=== PATIENT | female | born 1960 | race Caucasian/White ===

== ENCOUNTER 2025-03-09 08:36 | Emergency (ER) | payer OTHER ==
[2025-03-09] MEDS ORDERED: FAMOTIDINE 20 MG/2 ML VIAL IV ONE (09:20)
[2025-03-09 09:33] LABS: Absolute Monocytes 0.3 K/uL (0.1-1.3); Absolute Neutrophil 5.6 K/uL (1.8-8.0); Basophils % 0.3 % (0-1.3); Eosinophils % 0.6 % (0-4.4); Hematocrit 40.6 % (36.0-45.0); Hemoglobin 14.1 g/dL (12.0-15.0); Lymphocytes % 14.2 % (15.3-44.8); MCH 33.3 pg (27.0-35.0); MCHC 34.7 g/dL (32.0-36.0); MCV 95.9 fL (80-100); MPV 9.4 fL (7.6-11.3); Monocytes % 4.6 % (3.3-12.3); Neutrophils % 80.3 % (41.7-73.7); Platelets 225 thou/uL (152-406); RBC Red Blood Cell Count 4.23 M/uL (3.86-4.86); Red Cell Distribution Width 13.8 % (12.1-15.2)
--- NOTE | 2025-03-09 09:40 | RAD REPORT ---
EXAM: Chest Single View HISTORY: 64 years Female CHEST PAIN COMPARISON: None. FINDINGS: LUNGS/PLEURA: The lungs are clear. No pleural effusions or pneumothorax. No pulmonary edema. CARDIAC/MEDIASTINUM: The cardiac silhouette is within normal limits. UPPER ABDOMEN: No significant abnormality. BONES: No acute abnormality. LINES/TUBES/OTHER: N/A IMPRESSION: No evidence of acute cardiopulmonary disease.
[2025-03-09] MEDS ORDERED: KETOROLAC 30 MG/ML INJ ONE (09:42)
[2025-03-09 09:51] LABS: Albumin 3.7 g/dL (3.4-5.0); Albumin/Globulin Ratio 1.1 (1.1-1.8); Anion Gap 14.2 mEq/L (5.0-15.0); Bilirubin Direct 0.2 mg/dL (0-0.2); Bilirubin Indirect, Calculated 0.3 mg/dL (0.2-0.8); Bilirubin Total 0.5 mg/dL (0.2-1.0); Globulin 3.4 g/dL (2.3-3.5); Potassium 4.2 mEq/L (3.5-5.1); Protein, Total 7.1 g/dL (6.4-8.2); Troponin High Sensitivity 4.6 pg/mL (<58.9)
[2025-03-09] MEDS ORDERED: FENTANYL CITR 100 MCG/2 ML ONE (10:25)
--- NOTE | 2025-03-09 11:36 | ER ---
Nurse's Notes [facility] Name: Hailey Tran Age: 64 yrs Sex: Female : 1960 Arrival Date: 03/09/2025 Time: 08:36 Bed 12 Private MD: Diagnosis: Pain in left shoulder;Muscle spasm Presentation: 03/09 08:46 Chief complaint: Patient states: L sided back pain for 1 week. Pain was so severe today ll1 with nausea that she came to get checked. No fever. Pain to L upper back now with dizziness. Coronavirus screen: Client denies travel out of the [place] in the last 14 days. At this time, the client does not indicate any symptoms associated with coronavirus-19. Ebola Screen: Patient denies travel to an Ebola-affected area in the 21 days before illness onset. Initial Sepsis Screen: Does the patient meet any 2 criteria? No. Patient's initial sepsis screen is negative. Does the patient have a suspected source of infection? No. Patient's initial sepsis screen is negative. Risk Assessment: Do you want to hurt yourself or someone else? Patient reports no desire to harm self or others. Onset of symptoms was March 04, 2025. 08:46 Method Of Arrival: Ambulatory ll1 08:46 Acuity: LELO 3 ll1 Triage Assessment: 08:46 General: Appears distressed, uncomfortable, Behavior is calm, cooperative, appropriate ll1 for age, Reports. Pain: Complains of pain in back Pain currently is 10 out of 10 on a pain scale. Quality of pain is described as aching, throbbing. GI: Reports nausea. Musculoskeletal: Reports pain in back. Historical: - Allergies: 08:45 No Known Allergies; ll1 - PMHx: 08:45 Hypertensive disorder; ll1 - PSHx: 08:45 section; gastric sleeve; ll1 - Immunization history:: Adult Immunizations up to date. - Infectious Disease History:: Denies. - Social history:: Smoking status: Patient denies any tobacco usage or history of. Screenin:28 [facility] ED Fall Risk Assessment (Adult) History of falling in the last 3 months, ll1 including since admission No falls in past 3 months (0 pts) Confusion or Disorientation No (0 pts) Intoxicated or Sedated No (0 pts) Impaired Gait No (0 pts) Mobility Assist Device Used No (0 pt) Altered Elimination No (0 pt) Score/Fall Risk Level 0 - 2 = Low Risk Maintained a safe environment, Hourly rounding (assess needs \T\ fall precautionary measures) done. Abuse screen: Denies threats or abuse. Nutritional screening: No deficits noted. Tuberculosis screening: No symptoms or risk factors identified. Assessment: 09:04 Reassessment: No changes from previously documented assessment. Patient and/or family ll1 updated on plan of care and expected duration. Pain level reassessed. Patient is alert, oriented x 3, equal unlabored respirations, skin warm/dry/pink. 09:28 Reassessment: No changes from previously documented assessment. Patient and/or family ll1 updated on plan of care and expected duration. Pain level reassessed. Patient is alert, oriented x 3, equal unlabored respirations, skin warm/dry/pink. 10:31 Reassessment: No changes from previously documented assessment. Patient and/or family ll1 updated on plan of care and expected duration. Pain level reassessed. Patient is alert, oriented x 3, equal unlabored respirations, skin warm/dry/pink. 12:07 Reassessment: No changes from previously documented assessment. Patient and/or family ll1 updated on plan of care and expected duration. Pain level reassessed. Patient is alert, oriented x 3, equal unlabored respirations, skin warm/dry/pink. Vital Signs: 08:46 BP 128 / 83; Pulse 76; Resp 17; Temp 97.3; Pulse Ox 100% ; Weight 68.04 kg; Height 5 ll1 ft. 3 in. ; Pain 10/10; 09:41 BP 124 / 76; em1 10:30 BP 108 / 68; Pulse 70; Resp 17; Pulse Ox 100% on R/A; Pain 9/10; ll1 10:55 BP 112 / 74; Pulse 80; Resp 15; Pulse Ox 100% ; Pain 6/10; ll1 12:07 BP 106 / 73; Pulse 78; Resp 16; Pulse Ox 100% ; ll1 08:46 Body Mass Index 26.57 (68.04 kg, 160.02 cm) ll1 08:46 Pain Scale: Adult ll1 10:30 Pain Scale: Adult ll1 10:55 Pain Scale: Adult ll1 ED Course: 08:39 Patient arrived in ED. al6 08:48 Triage completed. ll1 08:48 Arm band placed on. ll1 08:54 Elin Ramirez FNP is [facility] 7 08:54 Brenda Mark MD is Attending Physician. jh7 09:01 Patient placed in an exam room, on a stretcher. ll1 09:04 Provided Education on: ER procedures and process. Warm blanket given. Pillow given. ll1 09:11 EKG done, by ED staff, reviewed by Elin JOHNSON. ll1 09:16 Iftikhar Julian, RN is Primary Nurse. ll1 09:22 Inserted saline lock: 22 gauge in right antecubital area, using aseptic technique. nh2 Blood collected. Flushed with 10 mL NS. 09:23 Basic Metabolic Panel Sent. nh2 09:23 CBC with Diff Sent. nh2 09:23 LFT's Sent. nh2 09:23 NT PRO-BNP Sent. nh2 09:23 Troponin HS Sent. nh2 09:28 Lipase Sent. nh2 09:29 Patient has correct armband on for positive identification. Bed in low position. Call ll1 light in reach. 09:30 XRAY Chest (1 view) In Process Unspecified. EDMS 10:58 Troponin High Sensitivity: repeat at 1045 Sent. ll1 12:07 No provider procedures requiring assistance completed. IV discontinued, intact, ll1 bleeding controlled, No redness/swelling at site. Pressure dressing applied. Administered Medications: 09:28 Drug: Famotidine IVP 20 mg IVP once; dilute with 10 mL 0.9% NaCl; give over 2 minutes ll1 Route: IVP; Site: right antecubital; 09:46 Follow up: Response: No adverse reaction ll1 09:46 Drug: Ketorolac IVP 30 mg IVP once Route: IVP; Site: right antecubital; 1 10:32 Follow up: Response: No adverse reaction; Pain is decreased; RASS: Alert and Calm (0) 1 10:32 Drug: fentaNYL (PF) IVP 25 mcg IVP once {Note: pain 9/10 RASS 0.} Route: IVP; Site: ll1 right antecubital; 12:08 Follow up: Response: No adverse reaction; Pain is decreased; RASS: Alert and Calm (0) [facility] Medication: 09:29 VIS not applicable for this client. ll1 Outcome: 11:35 Discharge ordered by MD. bermudez 12:07 Discharged to home ambulatory, ll1 12:07 Condition: stable 12:07 Discharge instructions given to patient, family, Instructed on discharge instructions, follow up and referral plans. no drinking with medication, no driving heavy equipment, medication usage, Demonstrated understanding of instructions, follow-up care, medications, Prescriptions given X 2, 12:08 Patient left the ED. ll1 Signatures: Dispatcher [employer] Jamel Avila 1 Iftikhar Julian, RN RN ll1 Elin Ramirez, MEMBERSHIP SALES REPRESENTATIVE MEMBERSHIP SALES REPRESENTATIVE 7 Bhupinder Tyson, Vibha Valle6 Corrections: (The following items were deleted from the chart) 09:17 08:46 Pain: Complains of pain in back Pain currently is 10 out of 10 on a pain scale. ll1 Quality of pain is described as aching, throbbing, ll1
--- NOTE | 2025-03-09 11:36 | EDPHYS ---
Physician Documentation [facility] Name: Hailey Tran Age: 64 yrs Sex: Female : 1960 Arrival Date: 03/09/2025 Time: 08:36 Bed 12 Private MD: ED Physician Brenda Mark HPI: 03/09 08:58 This 64 yrs old Female presents to ER via Ambulatory with complaints of Left shoulder jh7 blade and lower back pain. 09:17 64-year-old female presents to the ER for left lower back pain x 1 week and left jh7 shoulder blade pain starting this morning. She reports that the lower back pain is exacerbated by certain movements and lifting. She reports that this morning she woke up with nonreproducible left shoulder blade pain. She reports that she initially thought it was gas due to excessive burping, but reports that Gas-X has not helped relieve symptoms. The patient has a past medical history of hypertension and denies history of smoking. Denies chest pain, abdominal pain, vomiting, dizziness, or any other symptoms at this time.. Historical: - Allergies: 08:45 No Known Allergies; ll1 - PMHx: 08:45 Hypertensive disorder; ll1 - PSHx: 08:45 section; gastric sleeve; ll1 - Immunization history:: Adult Immunizations up to date. - Infectious Disease History:: Denies. - Social history:: Smoking status: Patient denies any tobacco usage or history of. ROS: 09:17 Constitutional: Per [place] [id number] Exam: 09:09 ECG was reviewed by the Attending Physician. [facility] 09:17 Constitutional: This is a well developed, well nourished patient who is awake, alert, jh7 and in no acute distress. Head/Face: Normocephalic, atraumatic. Chest/axilla: Normal chest wall appearance and motion. Nontender with no deformity. No lesions are appreciated. Cardiovascular: Regular rate and rhythm with a normal S1 and S2. No gallops, murmurs, or rubs. Normal PMI, no JVD. No pulse deficits. Respiratory: Lungs have equal breath sounds bilaterally, clear to auscultation and percussion. No rales, rhonchi or wheezes noted. No increased work of breathing, no retractions or nasal flaring. Abdomen/GI: Soft, non-tender, with normal bowel sounds. No distension or tympany. No guarding or rebound. No evidence of tenderness throughout. Skin: Warm, dry with normal turgor. Normal color with no rashes, no lesions, and no evidence of cellulitis. MS/ Extremity: Pulses equal, no cyanosis. Neurovascular intact. Full, normal range of motion. Neuro: Awake and alert, GCS 15, oriented to person, place, time, and situation. Motor strength 5/5 in all extremities. Sensory grossly intact. Normal gait. 09:17 Back: ROM is painful, with flexion, Pain located near L4-L5 paraspinal with no tenderness to palpation.. CVA tenderness, is absent, vertebral tenderness, is not appreciated, Vital Signs: 08:46 BP 128 / 83; Pulse 76; Resp 17; Temp 97.3; Pulse Ox 100% ; Weight 68.04 kg; Height 5 ll1 ft. 3 in. ; Pain 10/10; 09:41 BP 124 / 76; em1 10:30 BP 108 / 68; Pulse 70; Resp 17; Pulse Ox 100% on R/A; Pain 9/10; ll1 10:55 BP 112 / 74; Pulse 80; Resp 15; Pulse Ox 100% ; Pain 6/10; ll1 12:07 BP 106 / 73; Pulse 78; Resp 16; Pulse Ox 100% ; ll1 08:46 Body Mass Index 26.57 (68.04 kg, 160.02 cm) ll1 08:46 Pain Scale: Adult ll1 10:30 Pain Scale: Adult ll1 10:55 Pain Scale: Adult ll1 MDM: 08:55 Medical Screening Exam initiated jh7 11:23 Differential diagnosis: pneumonia Shoulder sprain, AMI, NSTEMI, costochondritis, muscle jh7 spasm. Data reviewed: vital signs, nurses notes, lab test result(s), EKG, radiologic studies, plain films. I considered the following discharge prescriptions or medication management in the emergency department Medications were administered in the Emergency Department. See MAR. Independent interpretation of the following test(s) in the Emergency Department EKG: See my EKG interpretation above X-Ray: My interpretation is No acute findings. Historians other than the Patient: Spouse/Significant Other: . Care significantly affected by the following chronic conditions: Hypertension. Scoring Tools PERC Rule for PE Age >/= 50 Yes HR >/= 100 No O2 Sat Room Air < 95% No Unilateral leg swelling No Hemoptysis No Recent surgery or trauma </= 4 wks ago requiring treatment with general anesthesia No (0 pt) Prior PE or DVT No Hormone use (Oral contraceptives, hormone replacement or estrogenic hormones use in males or female patients No. Counseling: I had a detailed discussion with the patient and/or guardian regarding the historical points, exam findings, and any diagnostic results supporting the discharge/admit diagnosis, to return to the emergency department if symptoms worsen or persist or if there are any questions or concerns that arise at home. Response to treatment: the patient's symptoms have markedly improved after treatment. ED course: Patient symptoms improved after pain medication administration. She remained hemodynamically stable throughout her ER stay. The patient admitted that 2 days ago she went golfing despite her lower back pain. When mimicking swinging a golf club the patient stated that her pain did worsen. Informed her that there was a good chance she was likely compensating with her upper body due to her lower back pain. Advised that she return to the ER with any chest pain, shortness of breath, or any new concerning symptoms.. 03/09 09:04 Order name: Basic Metabolic Panel; Complete Time: :53 [facility] 03/09 09:04 Order name: CBC with Diff; Complete Time: 09:35 [facility] 03/09 09:04 Order name: LFT's; Complete Time: :53 [facility] 03/09 09:04 Order name: NT PRO-BNP; Complete Time: :53 [facility] 03/09 09:04 Order name: Troponin HS; Complete Time: :53 [facility] 03/09 09:04 Order name: Lipase; Complete Time: :53 [facility] 03/09 10:13 Order name: Troponin High Sensitivity: repeat at 1045; Complete Time: 11:21 [facility] 03/09 09:04 Order name: XRAY Chest (1 view); Complete Time: 09:41 [facility] 03/09 09:04 Order name: Cardiac monitoring; Complete Time: 09:12 [facility] 03/09 09:04 Order name: EKG - Nurse/Tech; Complete Time: 09:11 [facility] 03/09 09:04 Order name: IV Saline Lock; Complete Time: 09:20 [facility] 03/09 09:04 Order name: Labs collected and sent; Complete Time: 09:20 [facility] 03/09 09:04 Order name: O2 Per Protocol; Complete Time: [facility] 03/09 09:04 Order name: O2 Sat Monitoring; Complete Time: [facility] EC: Rate is 80 beats/min. Rhythm is regular. QRS [place] is Normal. [place] interval is normal. QRS 7 interval is normal. QT interval is normal. No Q waves. T waves are Normal. No ST changes noted. Clinical impression: Normal ECG and Normal sinus rhythm with low voltage QRS. Administered Medications: :28 Drug: Famotidine IVP 20 mg IVP once; dilute with 10 mL 0.9% NaCl; give over 2 minutes ll1 Route: IVP; Site: right antecubital; 09:46 Follow up: Response: No adverse reaction [facility] 09:46 Drug: Ketorolac IVP 30 mg IVP once Route: IVP; Site: right antecubital; [facility] 10:32 Follow up: Response: No adverse reaction; Pain is decreased; RASS: Alert and Calm (0) [facility] 10:32 Drug: fentaNYL (PF) IVP 25 mcg IVP once {Note: pain 9/10 RASS 0.} Route: IVP; Site: ll1 right antecubital; 12:08 Follow up: Response: No adverse reaction; Pain is decreased; RASS: Alert and Calm (0) [facility] Disposition Summary: 03/09/25 11:35 Discharge Ordered Notes: Location: Home [facility] Problem: [facility] Symptoms: have improved [facility] Condition: Stable [facility] Diagnosis - Pain in left shoulder [facility] - Muscle spasm [facility] Followup: [facility] - With: Private Physician - When: 2 - 3 days - Reason: Recheck today's complaints Discharge Instructions: - Discharge Summary Sheet [facility] - Shoulder Pain [facility] - How to Use Cold Therapy, [id number] [facility] Forms: - Medication Reconciliation Form [facility] - Patient Portal Instructions [facility] - Leadership Thank You Letter [facility] Prescriptions: - Zanaflex 4 mg Oral Tablet - take 1 tablet ORAL route every 8 hours As needed; 20 tablet; Refills: 0, [facility] Product Selection Permitted - Medrol (Khari) 4 mg Oral Tablets, Dose Pack - take 1 tablet ORAL route as directed - follow package instructions; 1 packet; [facility] Refills: 0, Product Selection Permitted Signatures: Dispatcher [employer] EDMS Iftikhar Julian, RN RN ll1 Elin Ramirez, RN OR LVN RN OR LVN jh7 Corrections: (The following items were deleted from the chart) 09:05 09:05 BASIC METABOLIC PANEL+C.LAB.BRZ ordered. EDMS EDMS 09:05 09:05 CBC+H.LAB.BRZ ordered. EDMS EDMS 09:05 09:05 HEPATIC FUNCTION+C.LAB.BRZ ordered. EDMS EDMS 09:05 09:05 PROBNP+C.LAB.BRZ ordered. EDMS EDMS 09:05 09:05 Troponin High Sensitivity+C.LAB.BRZ ordered. EDMS EDMS 09:05 09:05 LIPASE+C.LAB.BRZ ordered. EDMS EDMS 09:05 09:05 Chest Single View+RAD.RAD.BRZ ordered. EDMS EDMS
[2025-03-09 12:23] VITALS: TEMP 97.3; O2SAT 100
[2025-03-09 12:37] VITALS: BP 106/73
== END 2025-03-09 12:08 | disposition home or self-care (01) ==
LOC: ER 08:36
DX: M62.838 Other muscle spasm (principal); M54.50 Low back pain, unspecified; I10 Essential (primary) hypertension
CPT/HCPCS: 85025; 80048; 36415; 80076; 84484 ×2; 83690; 83880; 71045; 96375; 96374; 99284; J3010; 93005